=== PATIENT | male | born 2000 | race Caucasian/White ===

== ENCOUNTER → 2021-07-23 10:03 | Outpatient (CLI) | payer MEDICAID, SELFPAY ==
[2021-07-23 11:36] LABS: COVID19 -Nasal RAPID POSITIVE (Negative)
== END ==
PROVIDERS: Visit Provider Nurse Practitioner Family
DX: U07.1 COVID-19 (principal); Z20.822 Contact with and (suspected) exposure to COVID-19
CPT/HCPCS: 87635